=== PATIENT | male | born 1945 | race American Indian/Alaskan Native ===

== ENCOUNTER 2017-07-26 05:41 | Day surgery (SDC) | payer MEDICARE, BC ==
[2017-07-13 11:13] VITALS: BMI 29.5
[2017-07-26] MEDS ORDERED: Iohexol 240 (50 ml) ONE (07:24)
[2017-07-26] MEDS ORDERED: Lidocaine 2% Jelly (Uro-Jet) ONE (07:24)
[2017-07-26] MEDS ORDERED: Midazolam 2 MG/2 ML VIAL ONE (07:45)
[2017-07-26] MEDS ORDERED: Propofol 10 mg/ml Inj (20 ML) ONE (07:45)
[2017-07-26] MEDS ORDERED: Lactated Ringer's 1,000 ML IV ONE (08:05)
[2017-07-26] MEDS ORDERED: Lidocaine Hydrochloride 5 ML INJ ONE (08:05)
[2017-07-26] MEDS ORDERED: Gentamicin 80 mg in 0.9% NS 80 MG/100 ML BAG IVPB ONE ×2 (08:34→09:32)
[2017-07-26] MEDS ORDERED: ePHEDrine 50 mg/ml Inj ONE (08:47)
--- NOTE | 2017-07-26 09:41 | PCM.SURG1 ---
Surgeon's Initial Post Op Note - Surgeon's Notes Surgeon: Sarahi Emery [employer] Administrator: none Type of Anesthesia: General LMA Pre-Operative Diagnosis: Hematuria. Prostate Ca. Urolithiasis Operative Findings: same. abnormal bladder mucosa Post-Operative Diagnosis: same Operation Performed: cysto, bilat rtg pyelogram, R stent insertion, bladder bx and fulg, EUA Specimen/Specimens Removed: urine. bladder bx Estimated Blood Loss: EBL {In ML}: 0 Blood Products Given: N/A Drains Used: No Drains Post-Op Condition: Good Date of Surgery/Procedure: 07/26/17 Time of Surgery/Procedure: 09:10
[2017-07-26 10:24] VITALS: O2SAT 95
[2017-07-26 12:12] VITALS: BP 161/73; PULSE 61; RESP 15; TEMP 97.9
--- NOTE | 2017-07-26 14:21 | RAD ---
PROCEDURE: Intraoperative Fluoroscopy. HISTORY: HEMATURIA FINDINGS: Fluoroscopic assistance was provided for bilateral retrograde and stent placement. Total fluoroscopic time (continuous mode) utilized during the procedure: 40.1 seconds. Total exam DLP: (mGy): 4.86.
--- NOTE | 2017-07-26 16:47 | RAD ---
HISTORY: Hematuria. COMPARISON: 12/14/2016 CT scan abdomen and pelvis FINDINGS: BOWEL: Normal. No obstruction. No free air. BONES: Normal. OTHER FINDINGS: Double-J stent catheter placed between the initial [employer] scout view of the abdomen 08:21 and the final image obtained at 09:00. The double-J stent catheter on the right appears be in satisfactory position. Relative filling defects in the midpole calyx likely represents known staghorn calculus. IMPRESSION: Satisfactory position of recently placed double-J stent catheter on the right.
--- NOTE | 2017-07-28 14:22 | OP ---
PROCEDURE DATE: $DTOF PREOPERATIVE DIAGNOSIS: Text. POSTOPERATIVE DIAGNOSIS: Text. I. [facility] urology operative port the patient break in the [facility] office and [facility] [id number] urology operative report. PREOPERATIVE DIAGNOSIS Urolithiasis. Hematuria. History of prostate cancer. POSTOPERATIVE DIAGNOSIS Same. Abnormal bladder mucosa. Right renal calculi. PROCEDURE Cystoscopy. Bilateral retrograde pyelogram. Insertion of right ureteral stent. Bladder biopsy and fulguration. Exam under anesthesia. Procedure was performed under video endoscopic control as well as under fluoroscopic control. The patient received perioperative antibiotics. The patient was placed in lithotomy position. Genitalia prepped and sterilely. Anesthesia was provided by the anesthesiologist. A 22-[place] cystoscope sheath was introduced under direct vision. Urethra, prostate and bladder were inspected with 30 degrees and 7 dB lenses. FINDINGS There was no stricture in the anterior hip. There was evidence of lateral lobe prostatic hypertrophy which is nonocclusive. There were no mucosal lesions within the prostatic urethra did not tube changer were nonocclusive to occlusive. Time occlusive. There was no bladder neck contraction. There was no bladder tumor. There is no bladder stone. There was severe there was evidence of a semi-rigid penile prosthesis. The bladder was noted to be mildly trabeculated. There was abnormal mucosa located on the right floor of the bladder. This was erythematous and slightly raised, although not papillary. The ureteral orifices were normal position and shape. There was moderate bladder trabeculation. There was no bladder diverticulum. The pit operator film of the abdomen did not reveal radiodense calculi. Occlusive tip retrograde pyelogram was performed. Iodinated contrast was still via cone tip catheter into the left ureteral orifice. The urine the kidney was viewed sequentially. Left retrograde pyelogram demonstrated no evidence of filling defect or obstruction. There was J okay of the distal ureter is consistent with prostatic enlargement. The right retrograde pyelogram was similarly performed. The there was noted to be of filling defects within the lower pole calyces consent. A 0.035 is guidewire were inserted into the right ureteral orifice passed up to level of kidney. A 6-[place] multilength stent was inserted over the guidewire. Proper stent position was confirmed with fluoroscopy endoscopy. The guidewire removed. Stent was left in place. The area of the abnormal mucosa in the bladder. Bladder was biopsied using Rama biopsy forceps. Fulguration was performed with ball electrode. Hemostasis was complete. The bladder was reinspected 70 dB lens and confirmed the above findings. The bladder was then drained. Cystoscope sheath removed. Exam under anesthesia was performed. There was no abnormal pelvic mass fixation or induration. Prostate was about 325 g size. Prostate was firm and smooth and symmetric without fixation, induration or nodularity. The patient tolerated procedure without complication. INDICATION The patient. Please send copy the patient. AndMD thank you PROCEDURE: Text. SURGEON: CASE LOADER OPERATOR: TYPE OF ANESTHESIA: Text. ANESTHESIA ADMINISTERED BY: FINDINGS: Text. IV FLUID INTAKE: ____ mL ESTIMATED BLOOD LOSS: ____ mL URINE OUTPUT: ____ mL COMPLICATIONS: Text. SPECIMEN: Text. DESCRIPTION OF PROCEDURE: Text. [facility] Name, M.D. (Insert Co-signer name using "Ctrl + Shift + I" window. Delete the co-signature block if not applicable.) cc: DT: 2016 09 25 am 9:25:02
--- NOTE | 2017-07-28 16:37 | OP ---
PROCEDURE DATE: UROLOGY OPERATIVE REPORT PREOPERATIVE DIAGNOSES: 1. Urolithiasis. 2. Hematuria. 3. History of prostate cancer. POSTOPERATIVE DIAGNOSES: 1. Urolithiasis. 2. Hematuria. 3. History of prostate cancer. 4. Abnormal bladder mucosa. 5. Right renal calculi. PROCEDURES: 1. Cystoscopy. 2. Bilateral retrograde pyelogram. 3. Insertion of right ureteral stent. 4. Bladder biopsy and fulguration. 5. Examination under anesthesia. Procedure was performed under video endoscopic control as well as under fluoroscopic control. The patient received perioperative antibiotics. The patient was placed in lithotomy position. Genitalia prepped and draped sterilely. Anesthesia was provided by the anesthesiologist. A 22-[place] cystoscope sheath was introduced under direct vision. Urethra, prostate, and bladder were inspected with 30-degree and 70-degree lenses. FINDINGS: There was no stricture in the anterior urethra. There was evidence of lateral lobe prostatic hypertrophy, which is occlusive. There were no mucosal lesions within the prostatic urethra. There was no bladder neck contraction. There was no bladder tumor. There was no bladder stone. There was evidence of a semi-rigid penile prosthesis. The bladder was noted to be mildly trabeculated. There was abnormal mucosa located on the right floor of the bladder. This was erythematous and slightly raised, although not papillary. The ureteral orifices were normal position and shape. There was moderate bladder trabeculation. There was no bladder diverticulum. The insurance verifier film of the abdomen did not reveal radiodense calculi. Occlusive tip retrograde ureteral pyelogram was performed. Iodinated contrast was instilled via cone tip catheter into the left ureteral orifice. The ureters and the kidneys were viewed sequentially. Left retrograde pyelogram demonstrated no evidence of filling defect or obstruction. There was J hooking of the distal ureters consistent with prostatic enlargement. The right retrograde pyelogram was similarly performed. There was noted to be filling defects within the lower pole calyces. A 0.035 inch guidewire was inserted into the right ureteral orifice and passed up to the level of the kidney. A 6-[place] multilength stent was inserted over the guidewire. Proper stent position was confirmed with fluoroscopy and endoscopy. The guidewire was removed and stent was left in place. The area of the abnormal mucosa in the bladder was biopsied using Rama biopsy forceps. Fulguration was performed with Ball electrode. Hemostasis was complete. The bladder was reinspected with a 70-degree lens and confirmed the above findings. The bladder was then drained. Cystoscope sheath removed. Exam under anesthesia was performed. There was no abnormal pelvic mass fixation or induration. Prostate was approximately 25 g in size. Prostate was firm and smooth and symmetric without fixation, induration, or nodularity. The patient tolerated the procedure without complication. eYsica Emery MD
== END 2017-07-26 11:45 | disposition home or self-care (01) ==
LOC: C.SDS 05:41
PROVIDERS: ATTEND Urology
DX: N20.0 Calculus of kidney (principal); N30.01 Acute cystitis with hematuria; Z85.46 Personal history of malignant neoplasm of prostate
CPT/HCPCS: 52005; 52204; 52332; 74022; 82948; 87086; 87181; 88104; 88305; C1769; C2617; J0696; J1580; J7120; Q9966